=== PATIENT | female | born 1985 | race Caucasian/White ===

== ENCOUNTER 2019-06-24 21:00 | Emergency (ER) | payer OTHER ==
[~2019-06-24 21:00] MED LIST: Iopamidol 370 76% 100 ML VIAL ONE
[2019-06-24] MEDS ORDERED: Ketorolac Tromethamine 30 MG/ML VIAL ONE (21:33)
[2019-06-24] MEDS ORDERED: Adacel (T-DAP) 0.5 ML SYRINGE ONE (21:33)
[2019-06-24 21:40] LABS: #Basophils 0.1 thou/uL (0.0-0.2); #Eosinphils 0.2 thou/uL (0.0-0.7); #Monocytes 0.4 thou/uL (0.11-0.59); %Basophils 1.5 % (0.0-1.0); %Monocytes 4.7 % (0.0-10.0); %Neutrophils 51.8 % (42.0-75.0); Hemoglobin 13.1 g/dL (12.0-16.0); Mean Corpuscular HGB CONC 32.3 g/dL (32.0-36.0); Mean Corpuscular Hemoglobin 31.3 pg (27.0-31.0); Mean Platelet Volume 7.7 fL (7.4-10.4); Platelet Count 282 thou/uL (130-400); RBC Distribution Width 13.3 % (11.5-14.5); Red Blood Cell (RBC) Count 4.19 mill/uL (4.20-5.40); White Blood Cell (WBC) Count 7.7 thou/uL (4.8-10.8)
[2019-06-24 21:41] LABS: BHCG - Serum Negative (NEGATIVE); Pregs Control Background? CLEAR/WHITE (CLR/WHITE); Pregs Control Bar Appear? YES (CONTROL BAR)
[2019-06-24 21:53] LABS: ALT (SGPT) 11 U/L (8-55); AST (SGOT) 14 U/L (5-34); Albumin 4.5 g/dL (3.5-5.0); Alkaline Phosphatase 43 U/L (40-110); Anion Gap 15 mmol/L (10-20); BUN (Urea Nitrogen) 8 mg/dL (7.0-18.7); Bilirubin, Total 0.4 mg/dL (0.2-1.2); Calc. Creatinine Clearance 0 mL/min (70-130); Calcium 8.6 mg/dL (7.8-10.44); Carbon Dioxide 23 mmol/L (22-29); Chloride 109 mmol/L (98-107); Estimated GFR-MDRD 79; Glucose 92 mg/dL (70-105); Potassium 3.9 mmol/L (3.5-5.1); Protein, Total 7.5 g/dL (6.0-8.3); Sodium 143 mmol/L (136-145)
[2019-06-24] MEDS ORDERED: Fentanyl 100 MCG/2 ML VIAL ONE (22:58)
--- NOTE | 2019-06-25 06:31 | RAD ---
RIGHT ANKLE THREE VIEWS: 06/24/2019 FINDINGS: A fracture is seen through the medial malleolus that is somewhat longitudinally oriented and extends into the tibiotalar joints. Displacement of the malleolar fracture is minimal. The lateral malleolus appears intact. The other nearby visible bony structures do as well. IMPRESSION: Vertical fracture of the medial malleolus. POS: HOME
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
== END 2019-06-24 23:55 | disposition home or self-care (01) ==
LOC: BURERS 21:00
DX: S82.54XA Nondisplaced fracture of medial malleolus of right tibia, initial encounter for closed fracture (principal); S80.212A Abrasion, left knee, initial encounter; F41.9 Anxiety disorder, unspecified; F32.9 Major depressive disorder, single episode, unspecified; F17.290 Nicotine dependence, other tobacco product, uncomplicated; Z79.899 Other long term (current) drug therapy; Z23 Encounter for immunization; V69.9XXA Occupant (driver) (passenger) of heavy transport vehicle injured in unspecified traffic accident, initial encounter
CPT/HCPCS: 27760; 36415; 70450; 71260; 72125; 74177; 80053; 84703; 85025; 90471; 90715; 94760; 96374; 96375; G0390; J1885; J3010; L0120; Q9967